=== PATIENT | female | born 1945 | race Caucasian/White ===

== ENCOUNTER 2021-03-07 05:49 | Inpatient (IN) ==
[2021-02-27 11:03] LABS: Basophils # 0.1 10*3/uL (0.0-0.2); Basophils % 1.2 % (0.0-0.8); Hematocrit 32.2 VOL% (35.7-47.0); Hemoglobin 10.2 GM/DL (12.0-16.0); Immature Granulocytes % 0.3 %; Immature Granulocytes Absolute 0.02 #; Lymphocytes # 2.5 10*3/uL (1.4-4.0); Lymphocytes % 32.6 % (21.3-54.2); Mean Corpuscular HGB Conc 31.7 GM/DL (32-36); Mean Corpuscular Volume 98.8 FL (87-102); Mean Platelet Volume 10.1 FL (9.6-12.0); Neutrophils % 55.9 % (38.7-73.9); Platelet Count 387 T/CUMM (130-400); Red Blood Count 3.26 MC/CUMM (3.8-5.5); Red Cell Distribution Width 14.5 % (9.3-17.3); White Blood Count 7.7 T/CUMM (4-12)
[2021-02-27 11:08] LABS: Bacteria,Urine Occasional /HPF (Few); Bilirubin,Urine Negative (Negative); Blood, Urine Negative (Negative); Glucose,Urine (UA) Negative (Negative); Hyaline Casts,Urine 1 /LPF (0-3); Ketones,Urine Negative (Negative); Mucus,Urine Occasional /LPF (Occasional); Nitrite,Urine Negative (Negative); Protein,Urine Negative; RBC,Urine <1 /HPF (0-4); Squamous Epithelial Cell,Urine Occasional /HPF (0-10); Urine Appearance CLEAR (Clear); Urine Color Colorless (Yellow); Urine Specific Gravity 1.006 (1.001-1.035); Urine Urobilinogen < 2.0 EU/DL (0.2-1.0)
[2021-02-27 11:15] LABS: INR 0.9; PT Patient Result 10.7 SECS (10.5-12.0); Partial Thromboplastin Time 25.4 SECS (23.8-32.1)
[2021-02-27 11:38] LABS: Bilirubin,Total 0.8 MG/DL (0.20-1.00); Calcium 9.6 MG/DL (8.5-10.1); Osmolality,Calculated 298.5 MOS/KG (273-304); Potassium 3.9 MMOL/L (3.5-5.1); Total Protein 7.8 G/DL (6.4-8.2)
[2021-03-07] MEDS ORDERED: VANCOMYCIN INJ 1,000 MG in SODIUM CHLORIDE 0.9% 250 ML IV ONE (06:00)
[2021-03-07] MEDS ORDERED: MIDAZOLAM 2 MG/2 ML VIAL ONE (06:18)
[2021-03-07] MEDS ORDERED: BUPIVACAINE SPINAL 0.75% 2 ML AMP SPINAL ONE (06:18)
[2021-03-07] MEDS ORDERED: propofoL 200 MG/20 ML VIAL IV ONE ×2 (06:18→08:47)
[2021-03-07] MEDS ORDERED: fentaNYL 100 MCG/2 ML VIAL ONE (06:18)
[2021-03-07] MEDS ORDERED: LIDOCAINE 2% 5 ML VIAL ONE (06:18)
[2021-03-07] MEDS ORDERED: KETAMINE 500 MG/10 ML VIAL ONE (06:18)
[2021-03-07] MEDS ORDERED: ePHEDrine 50 MG/ML VIAL ONE (06:24)
[2021-03-07] MEDS ORDERED: DEXAMETHASONE 4 MG/1 ML VIAL ONE ×2 (06:29→08:22)
[2021-03-07] MEDS ORDERED: ROPIVACAINE 0.5% 30 ML VIAL ONE (06:29)
[2021-03-07] MEDS ORDERED: DIAZEPAM 5 MG TABLET PO ONE (06:52)
[2021-03-07] MEDS ORDERED: FAMOTIDINE 20 MG TABLET PO ONE (06:52)
[2021-03-07] MEDS ORDERED: GABAPENTIN 400 MG CAPSULE PO ONE (06:52)
[2021-03-07] MEDS ORDERED: SCOPOLAMINE 1.5 MG PATCH TRANSDERM ONE (06:52)
[2021-03-07] MEDS ORDERED: ACETAMINOPHEN 500 MG TABLET PO ONE (06:52)
[2021-03-07] MEDS ORDERED: PROMETHAZINE 25 MG/1 ML VIAL IM PRN (07:51)
[2021-03-07] MEDS ORDERED: TEMAZEPAM 7.5 MG CAPSULE PO PRN (07:51)
[2021-03-07] MEDS ORDERED: MORPHINE 2 MG/1 ML SYRINGE IV PRN (07:51)
[2021-03-07] MEDS ORDERED: ONDANSETRON 4 MG/2 ML VIAL IV PRN (07:51)
[2021-03-07] MEDS ORDERED: LACTULOSE 20 GM/30 ML UDCUP PO PRN (07:51)
[2021-03-07] MEDS ORDERED: diphenhydrAMINE CAP 25 MG CAPSULE PO PRN (07:51)
[2021-03-07] MEDS ORDERED: BISACODYL 10 MG SUPP RECTAL PRN (07:51)
[2021-03-07] MEDS ORDERED: traMADol 50 MG TABLET PO PRN (07:54)
[2021-03-07] MEDS ORDERED: NITROGLYCERIN SL 0.4 MG TABLET SL PRN (07:54)
[2021-03-07] MEDS ORDERED: SODIUM CHLORIDE 0.9% 250 ML IV ONE ×2 (08:22→08:47)
[2021-03-07] MEDS ORDERED: LACTATED RINGERS 1,000 ML IV ONE (08:22)
[2021-03-07] MEDS ORDERED: PHENYLEPHRINE 1 MG/10 ML SYRINGE IV ONE ×2 (08:22→08:58)
[2021-03-07] MEDS ORDERED: TRANEXAMIC ACID 1,000 MG/10 ML VIAL ONE (08:22)
[2021-03-07] MEDS ORDERED: NON-FORMULARY MEDICATION (Docusate Sodium [Stool Softener] 100 mg Tablet) PO SCH (09:00)
[2021-03-07] MEDS ORDERED: ALBUTEROL/IPRATROPIUM 3 ML NEB RESP TX ONE (09:33)
[2021-03-07] MEDS: LACTATED RINGERS 1,000 ML IV SCH (15:19)
[2021-03-07] MEDS: ASPIRIN EC 81 MG TABLET PO SCH (15:19)
[2021-03-07] MEDS: METOPROLOL TARTRATE 25 MG TABLET PO SCH ×2 (15:20→20:33)
[2021-03-07] MEDS: CHLORTHALIDONE 25 MG TABLET PO SCH (15:20)
[2021-03-07] MEDS: FUROSEMIDE 20 MG TABLET PO SCH (15:20)
[2021-03-07] MEDS: DOCUSATE SODIUM 100 MG CAPSULE PO SCH ×2 (15:20→20:35)
[2021-03-07] MEDS: CLOPIDOGREL 75 MG TABLET PO SCH (15:20)
[2021-03-07] MEDS: NON-FORMULARY MEDICATION (Cinnamon Bark [Cinnamon] 500 mg Capsule) PO SCH (15:20)
[2021-03-07] MEDS: busPIRone 10 MG TABLET PO SCH ×2 (15:20→20:36)
[2021-03-07] MEDS: ceFAZolin 2,000 MG/50 ML DUPLEX IV SCH (15:29)
[2021-03-07] MEDS: diphenhydrAMINE CAP 25 MG CAPSULE PO SCH (20:33)
[2021-03-07] MEDS: COLCHICINE 0.6 MG CAPSULE PO SCH (20:34)
[2021-03-07] MEDS: PRAMIPEXOLE 0.25 MG TABLET PO SCH (20:35)
[2021-03-07] MEDS: MELATONIN 3 MG TABLET PO SCH (20:36)
[2021-03-07] MEDS: FONDAPARINUX 2.5 MG/0.5 ML SYRINGE SUBCUT SCH (20:38)
[2021-03-08] MEDS: ceFAZolin 2,000 MG/50 ML DUPLEX IV SCH (00:50)
[2021-03-08 05:39] LABS: Calcium 8.8 MG/DL (8.5-10.1); Potassium 4.1 MMOL/L (3.5-5.1)
[2021-03-08] MEDS: PRAMIPEXOLE 0.25 MG TABLET PO SCH ×2 (08:45→20:19)
[2021-03-08] MEDS: OMEGA 3 ACID ETHYL ESTERS 1 GM CAPSULE PO SCH (08:46)
[2021-03-08] MEDS: COLCHICINE 0.6 MG CAPSULE PO SCH ×2 (08:46→20:19)
[2021-03-08] MEDS: CHLORTHALIDONE 25 MG TABLET PO SCH (08:46)
[2021-03-08] MEDS: METOPROLOL TARTRATE 25 MG TABLET PO SCH ×2 (08:46→20:20)
[2021-03-08] MEDS: ASPIRIN EC 81 MG TABLET PO SCH (08:46)
[2021-03-08] MEDS: CLOPIDOGREL 75 MG TABLET PO SCH (08:46)
[2021-03-08] MEDS: POTASSIUM CHLORIDE 10 MEQ TABLET PO SCH (08:46)
[2021-03-08] MEDS: busPIRone 10 MG TABLET PO SCH ×2 (08:46→20:19)
[2021-03-08] MEDS: LOSARTAN 50 MG TABLET PO SCH (08:46)
[2021-03-08] MEDS: DOCUSATE SODIUM 100 MG CAPSULE PO SCH ×2 (08:47→20:18)
[2021-03-08] MEDS: NON-FORMULARY MEDICATION (Cinnamon Bark [Cinnamon] 500 mg Capsule) PO SCH (09:03)
[2021-03-08] MEDS: FUROSEMIDE 20 MG TABLET PO SCH (09:03)
[2021-03-08] MEDS: LACTATED RINGERS 1,000 ML IV SCH (11:40)
[2021-03-08] MEDS: ALBUTEROL 2.5 MG/3 ML NEB RESP TX SCH ×2 (13:40→20:10)
[2021-03-08] MEDS: MELATONIN 3 MG TABLET PO SCH (20:18)
[2021-03-08] MEDS: diphenhydrAMINE CAP 25 MG CAPSULE PO SCH (20:19)
[2021-03-08] MEDS: FONDAPARINUX 2.5 MG/0.5 ML SYRINGE SUBCUT SCH (20:20)
[2021-03-09] MEDS: LACTATED RINGERS 1,000 ML IV SCH (01:01)
[2021-03-09] MEDS: ALBUTEROL 2.5 MG/3 ML NEB RESP TX SCH ×4 (01:47→19:45)
[2021-03-09] MEDS: METOPROLOL TARTRATE 25 MG TABLET PO SCH ×2 (10:03→21:15)
[2021-03-09] MEDS: COLCHICINE 0.6 MG CAPSULE PO SCH ×2 (10:03→21:13)
[2021-03-09] MEDS: OMEGA 3 ACID ETHYL ESTERS 1 GM CAPSULE PO SCH (10:03)
[2021-03-09] MEDS: LOSARTAN 50 MG TABLET PO SCH (10:03)
[2021-03-09] MEDS: CLOPIDOGREL 75 MG TABLET PO SCH (10:04)
[2021-03-09] MEDS: CHLORTHALIDONE 25 MG TABLET PO SCH (10:04)
[2021-03-09] MEDS: POTASSIUM CHLORIDE 10 MEQ TABLET PO SCH (10:04)
[2021-03-09] MEDS: DOCUSATE SODIUM 100 MG CAPSULE PO SCH ×2 (10:04→21:14)
[2021-03-09] MEDS: PRAMIPEXOLE 0.25 MG TABLET PO SCH ×2 (10:04→21:13)
[2021-03-09] MEDS: busPIRone 10 MG TABLET PO SCH ×2 (10:05→21:14)
[2021-03-09] MEDS: ASPIRIN EC 81 MG TABLET PO SCH (10:05)
[2021-03-09] MEDS: FUROSEMIDE 20 MG TABLET PO SCH (10:05)
[2021-03-09] MEDS: NON-FORMULARY MEDICATION (Cinnamon Bark [Cinnamon] 500 mg Capsule) PO SCH (11:24)
[2021-03-09] MEDS: MAGNESIUM HYDROXIDE SUSP 30 ML UDCUP PO PRN (16:42)
[2021-03-09] MEDS: MELATONIN 3 MG TABLET PO SCH (21:13)
[2021-03-09] MEDS: FONDAPARINUX 2.5 MG/0.5 ML SYRINGE SUBCUT SCH (21:14)
[2021-03-09] MEDS: diphenhydrAMINE CAP 25 MG CAPSULE PO SCH (21:14)
[2021-03-10] MEDS: ALBUTEROL 2.5 MG/3 ML NEB RESP TX SCH ×3 (01:12→07:15)
[2021-03-10] MEDS: NON-FORMULARY MEDICATION (Cinnamon Bark [Cinnamon] 500 mg Capsule) PO SCH (08:00)
[2021-03-10] MEDS: LOSARTAN 50 MG TABLET PO SCH (08:35)
[2021-03-10] MEDS: POTASSIUM CHLORIDE 10 MEQ TABLET PO SCH (08:35)
[2021-03-10] MEDS: busPIRone 10 MG TABLET PO SCH (08:36)
[2021-03-10] MEDS: COLCHICINE 0.6 MG CAPSULE PO SCH (08:36)
[2021-03-10] MEDS: CLOPIDOGREL 75 MG TABLET PO SCH (08:36)
[2021-03-10] MEDS: CHLORTHALIDONE 25 MG TABLET PO SCH (08:36)
[2021-03-10] MEDS: OMEGA 3 ACID ETHYL ESTERS 1 GM CAPSULE PO SCH (08:36)
[2021-03-10] MEDS: FUROSEMIDE 20 MG TABLET PO SCH (08:36)
[2021-03-10] MEDS: DOCUSATE SODIUM 100 MG CAPSULE PO SCH (08:36)
[2021-03-10] MEDS: ASPIRIN EC 81 MG TABLET PO SCH (08:36)
[2021-03-10] MEDS: METOPROLOL TARTRATE 25 MG TABLET PO SCH (08:36)
[2021-03-10] MEDS: PRAMIPEXOLE 0.25 MG TABLET PO SCH (08:36)
[2021-03-10 10:51] VITALS: BP 126/67
== END 2021-03-10 11:10 | disposition swing bed (61) | DRG 470 ==
LOC: N.OR 05:49 → N.SDSINP 05:55 → N.3E 14:52
PROVIDERS: ADMIT Orthopaedic Surgery; ATTEND Orthopaedic Surgery

== ENCOUNTER 2021-10-10 11:55 | Inpatient (IN) ==
[2021-10-10] MEDS ORDERED: LEVOFLOXACIN INJ 500 MG/100 ML PREMIX IV STA (13:17)
[2021-10-10] MEDS ORDERED: DEXAMETHASONE 4 MG/1 ML VIAL IV STA (13:17)
[2021-10-10] MEDS ORDERED: NYSTATIN 500,000 UNIT/5 ML UDCUP SWISH/SWAL STA (13:18)
[2021-10-10] MEDS ORDERED: ALBUTEROL 2.5 MG/3 ML NEB RESP TX STA (13:18)
[2021-10-10] MEDS ORDERED: methylPREDNISolone SOD SUC 125 MG/2 ML VIAL IV STA (13:21)
[2021-10-10 13:24] LABS: Basophils % 0.3 % (0.0-0.8); Hemoglobin 10.6 GM/DL (12.0-16.0); Immature Granulocytes % 0.8 %; Immature Granulocytes Absolute 0.09 #; Lymphocytes # 1.4 10*3/uL (1.4-4.0); Lymphocytes % 11.3 % (21.3-54.2); Mean Corpuscular HGB Conc 32.1 GM/DL (32-36); Mean Platelet Volume 9.8 FL (9.6-12.0); Monocytes # 0.9 10*3/uL (0.11-0.8); Monocytes % 7.7 % (1.7-12.7); Neutrophils % 79.9 % (38.7-73.9); Platelet Count 378 T/CUMM (130-400); Red Cell Distribution Width 15.8 % (9.3-17.3); White Blood Count 11.9 T/CUMM (4-12)
[2021-10-10 13:48] LABS: Alanine Aminotransferase 28 U/L (13-56); Albumin 2.8 G/DL (3.4-5.0); Alkaline Phosphatase 133 U/L (45-117); Aspartate Amino Transferase 27 U/L (0-37); Bilirubin,Total < 0.39 MG/DL (0.20-1.00); Blood Urea Nitrogen 31 MG/DL (7-18); Calcium 9.7 MG/DL (8.5-10.1); Carbon Dioxide 28 MMOL/L (21-32); Chloride 102 MMOL/L (98-107); Ferritin 133.3 ng/mL (8-252); Glucose 100 MG/DL (74-106); Potassium 3.9 MMOL/L (3.5-5.1); Sodium 136 MMOL/L (136-145); Total Protein 8.1 G/DL (6.4-8.2)
[2021-10-10] MEDS ORDERED: AZITHROMYCIN INJ 500 MG in SODIUM CHLORIDE 0.9% 250 ML IV ONE (14:54)
[2021-10-10] MEDS ORDERED: GLUCAGON 1 MG VIAL IM PRN (14:54)
[2021-10-10] MEDS ORDERED: ONDANSETRON 4 MG/2 ML VIAL IV PRN (14:54)
[2021-10-10] MEDS ORDERED: ACETAMINOPHEN 325 MG TABLET PO PRN (14:54)
[2021-10-10] MEDS ORDERED: hydrALAZINE 20 MG/1 ML VIAL IV PRN (14:54)
[2021-10-10] MEDS ORDERED: guaiFENesin/DM ER 600-30 MG TABLET PO PRN (14:54)
[2021-10-10] MEDS ORDERED: ZALEPLON 5 MG CAPSULE PO PRN (14:54)
[2021-10-10] MEDS ORDERED: DEXTROSE 10% 250 ML BAG IV PRN (15:14)
[2021-10-10] MEDS ORDERED: REMDESIVIR 200 MG in SODIUM CHLORIDE 0.9% 210 ML IV ONE (18:00)
[2021-10-10] MEDS: CEFEPIME 1,000 MG in SODIUM CHLORIDE 0.9% 100 ML IV SCH ×2 (19:18→23:00)
[2021-10-10] MEDS ORDERED: ALBUTEROL INHALER 18 GM INH PRN (20:03)
[2021-10-10] MEDS: DOCUSATE SODIUM 100 MG CAPSULE PO SCH (20:25)
[2021-10-10] MEDS: PRAMIPEXOLE 0.25 MG TABLET PO SCH (20:25)
[2021-10-10] MEDS: busPIRone 5 MG TABLET PO SCH (20:25)
[2021-10-10] MEDS: METOPROLOL TARTRATE 25 MG TABLET PO SCH (20:25)
[2021-10-10] MEDS: ASCORBIC ACID 500 MG TABLET PO SCH (20:25)
[2021-10-10] MEDS: AMITRIPTYLINE 25 MG TABLET PO SCH (20:25)
[2021-10-10] MEDS ORDERED: ENOXAPARIN 40 MG/0.4 ML SYRINGE SUBCUT SCH (21:00)
[2021-10-10] MEDS: MELATONIN 3 MG TABLET PO PRN (22:45)
[2021-10-11 05:50] LABS: Basophils % 0.2 % (0.0-0.8); Hematocrit 30.7 VOL% (35.7-47.0); Hemoglobin 10.1 GM/DL (12.0-16.0); Immature Granulocytes % 2.8 %; Immature Granulocytes Absolute 0.25 #; Lymphocytes # 1.1 10*3/uL (1.4-4.0); Lymphocytes % 12.4 % (21.3-54.2); Mean Corpuscular HGB Conc 32.9 GM/DL (32-36); Mean Corpuscular Volume 99.7 FL (87-102); Mean Platelet Volume 9.9 FL (9.6-12.0); Monocytes # 0.5 10*3/uL (0.11-0.8); Monocytes % 5.6 % (1.7-12.7); Platelet Count 334 T/CUMM (130-400); Red Blood Count 3.08 MC/CUMM (3.8-5.5); Red Cell Distribution Width 15.6 % (9.3-17.3); White Blood Count 8.8 T/CUMM (4-12)
[2021-10-11 06:02] LABS: Calcium 9.1 MG/DL (8.5-10.1); Osmolality,Calculated 281.8 MOS/KG (273-304); Potassium 4.5 MMOL/L (3.5-5.1); Risk Ratio 2.41; Thyroid Stimulating Hormone 0.392 uIU/ml (0.358-3.74); VLDL Cholesterol 13.4 MG/DL
[2021-10-11 06:07] LABS: Band Neutrophils 2 % (0-10); Lymphocytes 13 % (20-55); Macrocytosis Slight; Total Cells Counted 100
[2021-10-11 06:08] LABS: Platelet Estimate Normal
[2021-10-11] MEDS: busPIRone 5 MG TABLET PO SCH ×2 (09:00→20:18)
[2021-10-11] MEDS: VALSARTAN 160 MG TABLET PO SCH (09:19)
[2021-10-11] MEDS: PANTOPRAZOLE 40 MG TABLET PO SCH (09:20)
[2021-10-11] MEDS: ZINC GLUCONATE 50 MG TABLET PO SCH (09:20)
[2021-10-11] MEDS: CETIRIZINE 10 MG TABLET PO SCH (09:21)
[2021-10-11] MEDS: DOCUSATE SODIUM 100 MG CAPSULE PO SCH ×2 (09:21→20:18)
[2021-10-11] MEDS: CHOLECALCIFEROL 1,000 UNIT TABLET PO SCH (09:21)
[2021-10-11] MEDS: CLOPIDOGREL 75 MG TABLET PO SCH (09:21)
[2021-10-11] MEDS: METOPROLOL TARTRATE 25 MG TABLET PO SCH ×2 (09:21→20:18)
[2021-10-11] MEDS: PRAMIPEXOLE 0.25 MG TABLET PO SCH ×2 (09:22→20:17)
[2021-10-11] MEDS: FERROUS SULFATE 325 MG TABLET PO SCH (09:22)
[2021-10-11] MEDS: ASPIRIN EC 81 MG TABLET PO SCH (09:22)
[2021-10-11] MEDS: ASCORBIC ACID 500 MG TABLET PO SCH ×2 (09:22→20:14)
[2021-10-11] MEDS: DEXAMETHASONE 4 MG/1 ML VIAL IV SCH (09:23)
[2021-10-11] MEDS: CEFEPIME 1,000 MG in SODIUM CHLORIDE 0.9% 100 ML IV SCH ×2 (09:24→16:00)
[2021-10-11] MEDS ORDERED: BUDESONIDE 0.5 MG/2 ML NEB RESP TX SCH (10:00)
[2021-10-11] MEDS: allopurinoL 300 MG TABLET PO SCH (11:29)
[2021-10-11] MEDS: REMDESIVIR 100 MG in SODIUM CHLORIDE 0.9% 100 ML IV SCH (12:13)
[2021-10-11] MEDS: BUDESONIDE/FORMOTEROL 160-4.5 INHALER 6 GM INH SCH (13:24)
[2021-10-11] MEDS: SODIUM CHLORIDE 0.9% 1,000 ML IV SCH (13:24)
[2021-10-11] MEDS: AMITRIPTYLINE 25 MG TABLET PO SCH (20:18)
[2021-10-11] MEDS: MELATONIN 3 MG TABLET PO PRN (20:22)
[2021-10-12] MEDS: CEFEPIME 1,000 MG in SODIUM CHLORIDE 0.9% 100 ML IV SCH ×2 (00:34→09:26)
[2021-10-12] MEDS: SODIUM CHLORIDE 0.9% 1,000 ML IV SCH ×2 (00:40→13:06)
[2021-10-12] MEDS: BUDESONIDE/FORMOTEROL 160-4.5 INHALER 6 GM INH SCH ×2 (00:54→10:39)
[2021-10-12 05:11] LABS: Basophils % 0.3 % (0.0-0.8); Hematocrit 30.5 VOL% (35.7-47.0); Hemoglobin 9.7 GM/DL (12.0-16.0); Immature Granulocytes % 2.3 %; Immature Granulocytes Absolute 0.27 #; Lymphocytes # 1.4 10*3/uL (1.4-4.0); Lymphocytes % 12.2 % (21.3-54.2); Mean Corpuscular HGB Conc 31.8 GM/DL (32-36); Mean Corpuscular Volume 100.7 FL (87-102); Mean Platelet Volume 9.6 FL (9.6-12.0); Monocytes # 1.1 10*3/uL (0.11-0.8); Monocytes % 9.5 % (1.7-12.7); Neutrophils % 75.7 % (38.7-73.9); Platelet Count 349 T/CUMM (130-400); Red Blood Count 3.03 MC/CUMM (3.8-5.5); Red Cell Distribution Width 15.8 % (9.3-17.3); White Blood Count 11.6 T/CUMM (4-12)
[2021-10-12 05:27] LABS: Calcium 9.2 MG/DL (8.5-10.1); Osmolality,Calculated 286.4 MOS/KG (273-304); Potassium 4.1 MMOL/L (3.5-5.1)
[2021-10-12 05:42] LABS: Alanine Aminotransferase 26 U/L (13-56); Albumin 2.7 G/DL (3.4-5.0); Alkaline Phosphatase 105 U/L (45-117); Aspartate Amino Transferase 24 U/L (0-37); Bilirubin,Total < 0.39 MG/DL (0.20-1.00); Blood Urea Nitrogen 36 MG/DL (7-18); Calcium 9.3 MG/DL (8.5-10.1); Carbon Dioxide 25 MMOL/L (21-32); Chloride 108 MMOL/L (98-107); Glucose 96 MG/DL (74-106); Osmolality,Calculated 284.5 MOS/KG (273-304); Sodium 139 MMOL/L (136-145); Total Protein 7.2 G/DL (6.4-8.2)
[2021-10-12] MEDS ORDERED: ENOXAPARIN 40 MG/0.4 ML SYRINGE SUBCUT SCH (09:00)
[2021-10-12] MEDS: DOCUSATE SODIUM 100 MG CAPSULE PO SCH (09:21)
[2021-10-12] MEDS: PANTOPRAZOLE 40 MG TABLET PO SCH (09:21)
[2021-10-12] MEDS: allopurinoL 300 MG TABLET PO SCH (09:22)
[2021-10-12] MEDS: VALSARTAN 160 MG TABLET PO SCH (09:23)
[2021-10-12] MEDS: CETIRIZINE 10 MG TABLET PO SCH (09:24)
[2021-10-12] MEDS: ASCORBIC ACID 500 MG TABLET PO SCH (09:24)
[2021-10-12] MEDS: CHOLECALCIFEROL 1,000 UNIT TABLET PO SCH (09:24)
[2021-10-12] MEDS: CLOPIDOGREL 75 MG TABLET PO SCH (09:24)
[2021-10-12] MEDS: busPIRone 5 MG TABLET PO SCH (09:24)
[2021-10-12] MEDS: ZINC GLUCONATE 50 MG TABLET PO SCH (09:24)
[2021-10-12] MEDS: FERROUS SULFATE 325 MG TABLET PO SCH (09:24)
[2021-10-12] MEDS: PRAMIPEXOLE 0.25 MG TABLET PO SCH (09:24)
[2021-10-12] MEDS: DEXAMETHASONE 4 MG/1 ML VIAL IV SCH (09:25)
[2021-10-12] MEDS: METOPROLOL TARTRATE 25 MG TABLET PO SCH (09:25)
[2021-10-12] MEDS ORDERED: METOPROLOL TARTRATE 25 MG TABLET PO ONE (09:36)
[2021-10-12] MEDS: ASPIRIN EC 81 MG TABLET PO SCH (09:44)
[2021-10-12] MEDS: REMDESIVIR 100 MG in SODIUM CHLORIDE 0.9% 100 ML IV SCH (10:38)
[2021-10-12 12:39] VITALS: BP 118/78
[2021-10-12] MEDS ORDERED: METOPROLOL TARTRATE 25 MG TABLET PO SCH (21:00)
[2021-10-13] MEDS ORDERED: APIXABAN 2.5 MG TABLET PO SCH (09:00)
== END 2021-10-12 14:00 | disposition home or self-care (01) | DRG 177 ==
LOC: N.ED 11:55 → N.3E 11:55 → SUATTDRO 10-11 16:38
PROVIDERS: ADMIT Internal Medicine; ATTEND Emergency Medicine